=== PATIENT | female | born 1980 | race American Indian/Alaskan Native ===

== ENCOUNTER 2020-04-07 21:52 | Emergency (ER) | payer BC, OTHER ==
[2020-04-07] MEDS ORDERED: DIPHtheria,PERTUSSIS(ACELL),TETANUS VACCINE/PF 0.5 ML VIAL IM ONE (22:52)
[2020-04-07] MEDS ORDERED: HYDROGEN PEROXIDE 118 ML SOLUTION TP STA (22:57)
--- NOTE | 2020-04-07 23:04 | Emergency Department Report ---
ED General Adult HPI - General Chief complaint: Wound/Laceration Stated complaint: LACERATION TO LT SIDE OF FACE Time Seen by Provider: 04/07/20 22:13 Source: patient Mode of arrival: Ambulatory Limitations: No Limitations - History of Present Illness Initial comments: 40-year-old -Iranian female patient presents with complaints of left facial laceration today. She denies any past medical history. Patient reports she hit her head on the edge of a door. She denies any loss of consciousness, nausea/vomiting, dizziness, vision changes, or headache. She rates her current pain is a 5/10 in severity. Last tetanus vaccination is unknown per patient. - Related Data Allergies Allergy/AdvReac Type Severity Reaction Status Date / Time codeine Allergy Nausea Unverified 09/03/14 17:42 ED Review of Systems ROS: Stated complaint: LACERATION TO LT SIDE OF FACE Other details as noted in HPI Constitutional: denies: fever, malaise Eyes: denies: eye pain, vision change Respiratory: denies: cough, shortness of breath Cardiovascular: denies: chest pain Gastrointestinal: denies: nausea, vomiting Skin: denies: rash Neurological: denies: headache, numbness, paresthesias, confusion, abnormal gait ED Past Medical Hx - Past Medical History Previous Medical History?: No - Surgical History Past Surgical History?: Yes Hx Cholecystectomy: Yes - Social History Smoking Status: Never Smoker Substance Use Type: None ED Physical Exam - General Limitations: No Limitations General appearance: alert, in no apparent distress - Head Head exam: Present: normocephalic - Expanded Head Exam Expanded Head exam: Present: laceration ( Juxtaposition to left eyebrow). Absent: contusion, hematoma - Eye Eye exam: Present: normal appearance, PERRL, EOMI. Absent: scleral icterus, conjunctival injection - Neck Neck exam: Present: normal inspection. Absent: tenderness - Respiratory Respiratory exam: Absent: respiratory distress - Back Exam Back exam: Present: full ROM - Neurological Exam Neurological exam: Present: alert, oriented X3, CN II-XII intact, normal gait. Absent: motor sensory deficit - Psychiatric Psychiatric exam: Present: normal affect, normal mood - Skin Skin exam: Present: warm, dry, intact, normal color. Absent: rash - Procedure Description Procedures done: Area was prepped with Betadine. Minimal bleeding occurred. No foreign bodies noted. Laceration closed using Dermabond and Steri-Strips. Patient tolerated procedure well without any immediate complications. ED Medical Decision Making - Medical Decision Making 40-year-old -Iranian female patient presents with complaints of left facial laceration today. She denies any past medical history. Patient reports she hit her head on the edge of a door. She denies any loss of consciousness, nausea/vomiting, dizziness, vision changes, or headache. She rates her current pain is a 5/10 in severity. Last tetanus vaccination is unknown per patient. Steri-Strips and Dermabond used to close wound. Patient tolerated procedure well without any immediate complications. Discussed wound care and signs and symptoms of infection that should prompt immediate return to the emergency department in detail with patient who verbalized understanding. She is well- appearing and stable for discharge home. Critical care attestation.: If time is entered above; I have spent that time in minutes in the direct care of this critically ill patient, excluding procedure time. ED Disposition Clinical Impression: Facial laceration Qualifiers: Encounter type: initial encounter Qualified Code(s): S01.81XA - Laceration without foreign body of other part of head, initial encounter Disposition: DC-01 TO HOME OR SELFCARE Is pt being admited?: No Condition: Stable Instructions: Laceration Care, Adult, Tissue Adhesive Wound Care Referrals: PRIMARY CARE, [Referring] - 3-5 Days Forms: Work/School Release Form(ED)
[2020-04-08 00:11] VITALS: BP 127/72
== END 2020-04-07 23:19 | disposition home or self-care (01) ==
LOC: ED 21:52
DX: S01.81XA Laceration without foreign body of other part of head, initial encounter (principal); Z90.49 Acquired absence of other specified parts of digestive tract; Z88.8 Allergy status to other drugs, medicaments and biological substances; W22.8XXA Striking against or struck by other objects, initial encounter; Y93.89 Activity, other specified; Y92.89 Other specified places as the place of occurrence of the external cause; Y99.8 Other external cause status
CPT/HCPCS: 90471; 90715